=== PATIENT | male | born 1950 | race Caucasian/White ===

== ENCOUNTER 2018-04-11 18:19 | Inpatient (IN) | payer OTHER ==
[~2018-04-11] VITALS: Ht 177.8 cm; Wt 102.1 kg
--- NOTE | ~2018-04-11 | EKG ---
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 : 1950 Requested By: Carole Mon Order Number: [id number] MD: Byron Dawn Measurements Intervals [place] Rate: 93 P: 55 [place]: 128 QRS: 24 QRSD: 99 T: -9 QT: 355 QTc: 442 Interpretive Statements Sinus rhythm Nonspecific ST segment abnormality Baseline wander in lead(s) V5 No previous ECG available for comparison Electronically Signed On 04-12-2018 8:00:27 SCALE TANK OPERATOR by Byron Dawn [email or web address] <ELECTRONICALLY SIGNED> By: Byron Dawn MD, [facility] 04/12/18 0800 1849 48 Byron Dawn MD, FACC /EPI
--- NOTE | ~2018-04-11 | P ---
[facility] [place] [address] PROCEDURE REPORT Name: LAWRENCE LOVING Room #: 451-P ADM IN M.R.#: [id number] Admission: 04/11/18 Attend Phys: Kelly Ragland MD Discharge: Date of : 48 Report #: [id number] THIS REPORT FOR: //name// CC: Patient's Chart Kelly Ragland MD The patient of Dr. Ragland. PROCEDURE: Diagnostic esophagogastroduodenoscopy. INDICATION FOR PROCEDURE: This patient came in with a history of coffee-ground emesis. He had been on Xarelto, last dose was yesterday morning at 9 a.m. We are asked to evaluate him for the source of the coffee ground emesis. DESCRIPTION OF PROCEDURE: Informed consent for this procedure was obtained prior to the administration of any medication. The risks of the procedure, which include bleeding, perforation, infection, complications of sedation and the possibility I could miss something have been explained to the patient. He has indicated his consent by signing. Propofol was slowly titrated before and during this procedure for patient comfort by the anesthesia service. The Olympus upper videoscope was introduced through the upper esophageal sphincter and advanced under direct visualization to the descending duodenum. Findings are noted on withdrawal of the scope. The duodenal mucosa appears normal throughout its entirety. Pylorus, normal mucosa; antrum, normal mucosa. Body, normal mucosa. Cardia and fundus, normal mucosa. On retroflex view, the patient has a hiatal hernia and inside the hiatal hernia are some nonbleeding Joao's erosions which are the likely source of his coffee-ground emesis. The scope was withdrawn into the esophagus. The Z-line is appropriately located at the top of the gastric folds and appears normal. The esophageal mucosa appears normal throughout its entirety. The scope is withdrawn. The patient went to the recovery area in stable condition. He tolerated the procedure well. IMPRESSION: Hiatal hernia with Joao erosions that are probably the source of his coffee-ground emesis. Recommendations are for him to be on proton pump inhibitors for now. We will also ask that he have a repeat UA with micro as his urine is grossly bloody at this time and I think this might be from trauma from a Yadav catheter insertion. [address] [address] PROCEDURE REPORT Name: LAWRENCE LOVING Room #: 451-P ADM IN M.R.#: [id number] Admission: 04/11/18 Attend Phys: Kelly Ragland MD Discharge: Date of : 48 Report #: [id number] Thank you very much once again for allowing me to participate in his care, Dr. Ragland. <ELECTRONICALLY SIGNED> By: Camille Hardy DO 04/12/18 2052 1423 1708 Camille Hardy DO /nt
[2018-04-11 18:24] VITALS: BP 139/71
[2018-04-11] MEDS ORDERED: SPIRONOLACTONE25 M1 PO (18:44)
[2018-04-11] MEDS ORDERED: WELLBUTRIN 100100 MG PO (18:46)
[2018-04-11] MEDS ORDERED: LIPITOR 20 MG T20 M1 PO (18:46)
[2018-04-11] MEDS ORDERED: AMARYL4 MG PO (18:46)
[2018-04-11] MEDS ORDERED: DEPAKOTE 250MG250 M1 PO (18:47)
[2018-04-11] MEDS ORDERED: PEPCID20 MG PO (18:49)
[2018-04-11] MEDS ORDERED: LASIX 80 MG TAB80 MG PO (18:49)
[2018-04-11] MEDS ORDERED: NOVOLOG100 UNIT/1 SUBQ (18:50)
[2018-04-11] MEDS ORDERED: NAMENDA 10 MG T10 MG PO (18:50)
[2018-04-11] MEDS ORDERED: FLOMAX0.4 MG PO (18:51)
[2018-04-11 19:24] LABS: ABSOLUTE NEUTROPHILS 6.7 thou/uL (1.4-8.2); BASOPHILS 0.5 % (0.0-2.0); EOSINOPHILS 1.3 % (0.0-3.0); HEMATOCRIT 35.2 % (42.0-52.0); HEMOGLOBIN 12.2 gm/dL (14.0-18.0); LYMPHOCYTES 9.5 % (24.0-44.0); MCH 28.2 pg (26.0-34.0); MCHC 34.5 g/dL (28.0-37.0); MCV 81.6 fL (80.0-100.0); MONOCYTES 8.7 % (1.0-8.0); PLATELET COUNT 187 thou/uL (150-400); RBC 4.32 mil/uL (4.50-6.00); RDW 15.8 % (10.5-14.5); WBC 8.4 thou/uL (4.0-11.0)
[2018-04-11 19:27] LABS: ANION GAP 7 mmol/L (7-16); BUN 21 mg/dL (7-18); CALCIUM 8.7 mg/dL (8.5-10.1); CHLORIDE 98 mmol/L (98-107); CO2 31 mmol/L (21-32); CREATININE 1.6 mg/dL (0.7-1.3); GLUCOSE 174 mg/dL (74-106); POTASSIUM 4.2 mmol/L (3.5-5.1); SODIUM 136 mmol/L (136-145)
[2018-04-11 19:29] LABS: INR 1.1; PROTIME 11.9 Seconds (9.3-11.4)
[2018-04-11 19:29] LABS: URINE BILIRUBIN NEGATIVE (Negative); URINE BLOOD NEGATIVE (Negative); URINE CLARITY CLEAR; URINE COLOR YELLOW; URINE GLUCOSE-RANDOM* 2+ (Negative); URINE KETONES NEGATIVE (Negative); URINE LEUKOCYTES NEGATIVE (Negative); URINE NITRITE NEGATIVE (Negative); URINE PROTEIN (DIPSTICK) NEGATIVE (Negative)
[2018-04-11 19:36] LABS: ALBUMIN 3.2 g/dL (3.4-5.0); LIPASE 265 U/L (73-393); SGOT 20 U/L (15-37); SGPT 19 U/L (30-65); TOTAL BILIRUBIN 0.4 mg/dL (<0.1-1.0); TOTAL PROTEIN 6.8 g/dL (6.4-8.2); TROPONIN-I <0.06 ng/mL (<0.06)
[2018-04-11 23:01] VITALS: BP 136/72
[2018-04-12 04:08] VITALS: BP 127/77
[2018-04-12 08:02] VITALS: BP 124/65
[2018-04-12 10:10] LABS: HEMATOCRIT 31.7 % (42.0-52.0); HEMOGLOBIN 10.9 gm/dL (14.0-18.0)
[2018-04-12 15:21] VITALS: BP 126/65
[2018-04-12 19:20] VITALS: BP 134/84
[2018-04-13 04:35] VITALS: BP 110/53
[2018-04-13 04:50] LABS: HEMATOCRIT 32.1 % (42.0-52.0); HEMOGLOBIN 10.8 gm/dL (14.0-18.0); MCH 27.9 pg (26.0-34.0); MCHC 33.6 g/dL (28.0-37.0); MCV 82.9 fL (80.0-100.0); RBC 3.88 mil/uL (4.50-6.00); RDW 15.4 % (10.5-14.5)
[2018-04-13 05:03] LABS: CALCIUM 8.3 mg/dL (8.5-10.1); CREATININE 1.4 mg/dL (0.7-1.3); POTASSIUM 4.4 mmol/L (3.5-5.1)
[2018-04-13 07:37] VITALS: BP 118/64
[2018-04-13] MEDS ORDERED: LASIX 40 MG TAB40 M2 PO (14:09)
[2018-04-13] MEDS ORDERED: IRON325 PO (14:17)
[2018-04-13] MEDS ORDERED: PANTOPRAZOLE SO40 M1 PO (14:17)
[2018-04-13 14:20] VITALS: BP 102/64
== END 2018-04-13 18:25 | DRG 378 ==
LOC: ER 18:19 → 4W 23:31
PROVIDERS: Internal Medicine; Physician Assistant
PROC: 0DJ08ZZ Inspection of Upper Intestinal Tract, Via Natural or Artificial Opening Endoscopic (ICD-10-PCS; principal; 2018-04-12)
DX: K25.4 Chronic or unspecified gastric ulcer with hemorrhage (principal); D62 Acute posthemorrhagic anemia; K44.9 Diaphragmatic hernia without obstruction or gangrene; E11.9 Type 2 diabetes mellitus without complications; F03.90 Unspecified dementia, unspecified severity, without behavioral disturbance, psychotic disturbance, mood disturbance, and anxiety; F32.9 Major depressive disorder, single episode, unspecified; E78.5 Hyperlipidemia, unspecified; I48.91 Unspecified atrial fibrillation; K80.20 Calculus of gallbladder without cholecystitis without obstruction; K21.9 Gastro-esophageal reflux disease without esophagitis; N40.0 Benign prostatic hyperplasia without lower urinary tract symptoms; F39 Unspecified mood [affective] disorder; Z79.01 Long term (current) use of anticoagulants; Z79.899 Other long term (current) drug therapy
CPT/HCPCS: 10045; 62110; 62900; 70005

== ENCOUNTER 2020-03-04 10:47 | Inpatient (IN) | payer OTHER ==
[~2020-03-04] VITALS: Ht 177.8 cm; Wt 94.9 kg
[~2020-03-04 10:47] MED LIST: AMARYL4 MG PO; DEPAKOTE 250MG250 M1 PO; FLOMAX0.4 MG PO; IRON325 PO; LASIX 40 MG TAB40 M2 PO; LASIX 80 MG TAB80 MG PO; LIPITOR 20 MG T20 M1 PO; NAMENDA 10 MG T10 MG PO; NOVOLOG100 UNIT/1 SUBQ; PANTOPRAZOLE SO40 M1 PO; PEPCID20 MG PO; SPIRONOLACTONE25 M1 PO; WELLBUTRIN 100100 MG PO
[2020-03-04 10:48] VITALS: BP 105/74
[2020-03-04 11:16] LABS: ABSOLUTE NEUTROPHILS 4.1 thou/uL (1.4-8.2); BASOPHILS 0.7 % (0.0-2.0); EOSINOPHILS 4.6 % (0.0-3.0); HEMATOCRIT 43.1 % (42.0-52.0); HEMOGLOBIN 14.9 gm/dL (14.0-18.0); LYMPHOCYTES 19.7 % (24.0-44.0); MCH 31.3 pg (26.0-34.0); MCHC 34.6 g/dL (28.0-37.0); MCV 90.5 fL (80.0-100.0); MONOCYTES 6.9 % (1.0-8.0); PLATELET COUNT 164 thou/uL (150-400); POLYS 68.1 % (36.0-66.0); RBC 4.76 mil/uL (4.50-6.00); RDW 15.7 % (10.5-14.5)
[2020-03-04] MEDS ORDERED: NOVOLIN 70100 UNIT/1 SUBQ ×2 (12:25→12:26)
[2020-03-04] MEDS ORDERED: OMEPRAZOLE 20 M20 M1 PO (12:26)
[2020-03-04] MEDS ORDERED: ACETAMINOPHEN500 M1 PO (12:29)
[2020-03-04] MEDS ORDERED: VITCB500GO PO (12:30)
[2020-03-04] MEDS ORDERED: DEPAKOTE125 MG PO (12:32)
[2020-03-04] MEDS ORDERED: OPTIMAL D31250 MCG PO (12:33)
[2020-03-04 12:36] LABS: CALCIUM 8.6 mg/dL (8.5-10.1); CREATININE 1.4 mg/dL (0.7-1.3); POTASSIUM 3.9 mmol/L (3.5-5.1)
--- NOTE | 2020-03-04 12:55 | EKG ---
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: [facility] : 1950 Requested By: Issac Greene Order Number: [id number] MD: Byron Dawn Measurements Intervals [place] Rate: 149 P: 129 [place]: 136 QRS: 52 QRSD: 89 T: 240 QT: 348 QTc: 548 Interpretive Statements Atrial flutter Nonspecific ST and T wave abnormality Prolonged QT interval Compared to ECG 04/11/2018 18:50:00 Atrial flutter has replaced sinus rhythm Electronically Signed On 03-04-2020 12:55:05 CDT by Byron Dawn [email or web address] <ELECTRONICALLY SIGNED> By: Byron Dawn MD, FACC 03/04/20 1255 1052 1052 Byron Dawn MD, [facility] /EPI
[2020-03-04 13:29] LABS: URINE BILIRUBIN NEGATIVE (Negative); URINE BLOOD NEGATIVE (Negative); URINE CLARITY CLEAR; URINE COLOR YELLOW; URINE GLUCOSE-RANDOM* NEGATIVE (Negative); URINE KETONES NEGATIVE (Negative); URINE LEUKOCYTES-REFLEX NEGATIVE (Negative); URINE NITRITE-REFLEX NEGATIVE (Negative); URINE PROTEIN (DIPSTICK) NEGATIVE (Negative); URINE UROBILINOGEN 0.2 E.U./dl (0.2-1.0)
[2020-03-04 15:50] VITALS: BP 103/68
--- NOTE | 2020-03-04 17:51 | NUR ---
DR FUENTES NOTIFIED OF BS READINGS. CURRENTLY 70MG/DL. ORDER TO RECHECK IN AN HR.
[2020-03-04 18:06] LABS: FOLIC ACID 9.7 ng/mL (8.6-58.9); TSH 1.362 uIU/mL (0.358-3.740)
[2020-03-04 18:33] VITALS: BP 97/69
[2020-03-04 19:11] VITALS: BP 117/78
[2020-03-04 21:00] VITALS: BP 131/81
--- NOTE | 2020-03-04 22:00 | NUR ---
RECIEVED PT FROM ED , UPON ARRIVAL TO UNIT PT ALERT AND ORIENT TO SELF AND SITUATION, YARD PILOT PLACED ON,SHOWS AFIB AND NSR CONTROLLED RATE 78. DISCUSSED PLAN OF CARE VERBALIZED UNDERSTANDING BUT NEED REINFORCEMENT AND REMINDERS. BED ALARM ON WITH YELLOW BAND AND YELLOW SOCKS FOR SAFETY. WILL CONITNUE WITH CURRENT PLAN OF CARE AND WILL CALL WITH CHANGES OR ABNORMAL FINDINGS.
[2020-03-04 23:50] VITALS: BP 93/61
[2020-03-05 07:25] VITALS: BP 97/69
[2020-03-05 08:58] LABS: ABSOLUTE NEUTROPHILS 4.1 thou/uL (1.4-8.2); BASOPHILS 0.6 % (0.0-2.0); EOSINOPHILS 3.7 % (0.0-3.0); HEMOGLOBIN 12.6 gm/dL (14.0-18.0); LYMPHOCYTES 21.7 % (24.0-44.0); MCH 30.4 pg (26.0-34.0); MCV 91.9 fL (80.0-100.0); MONOCYTES 8.1 % (1.0-8.0); PLATELET COUNT 141 thou/uL (150-400); POLYS 65.9 % (36.0-66.0); RBC 4.14 mil/uL (4.50-6.00); WBC 6.3 thou/uL (4.0-11.0)
[2020-03-05 09:02] LABS: CALCIUM 8.1 mg/dL (8.5-10.1); CREATININE 1.6 mg/dL (0.7-1.3)
--- NOTE | 2020-03-05 09:34 | NUR ---
CM INITIATED ASSESSMENT, SPAdrian W/PT'S BROTHER, REGINE, PT DID NOT ANSWER PHONE IN HIS ROOM. PT HAS RESIDED AT [facility] FOR THE LAST "FOUR OR FIVE YEARS" PER REGINE. "They say he has a touch of dementia...but he holds a conversation with me when i go to see him. pt has no children involvment. regine stated he believes the pt has "given up...he doesnt want to get better...since he has been in there [[facility]]. jalen mazariegos w/pt's rn, alea, who stated pt okay to rtrn to facility. cm lft message intake coord at [facility] to discuss d/c planning. pt has tested negative for covid on 03/04/20.
[2020-03-05] MEDS ORDERED: METOPROLOL TART25 MG PO (10:34)
[2020-03-05 15:08] VITALS: BP 90/55
--- NOTE | 2020-03-05 16:24 | NUR ---
PT STABLE THROUGH OUT THE DAY. VSS. REMAINS IN SINUS RYHTM ON THE MONITOR. RATES CONTROLLED. ALERT TO SELF BUT FORGETFUL AND CONFUSED. HX OF DEMENTIA. DISCONTINUED ENHANCED PRECAUTIONS PER GEETHA SEVERINO. PATIENT VOICES NO NEED OR CONCERNS. IV FLUIDS INFUSING. PATIENT TO DISCHARGE BACK TO FACILITY.
[2020-03-05 19:17] VITALS: BP 115/66
[2020-03-06 04:15] VITALS: BP 95/64
--- NOTE | 2020-03-06 05:31 | NUR ---
PT MAKING POOR PROGRESS TOWARDS GOALS. PT INCONTINENT X2. PT DOES NOT REPORT THAT HE NEEDS ASSISTANCE WITH URINATING OR THAT HE HAS BEEN INCONTINENT. PT ORIENTED TO NAME, DATE, LOCATION BUT NOT HIS SITUATION. PT REFUSED TO HAVE HIS HS BLOOD SUGAR CHECKED. "I'M NOT DIABETIC" THOUGH THE H&P STATES DIABETES THIS IN HIS MEDICAL HISTORY. ALSO REFUSED HS DOSE OF LOVENOX. ATTEMPTED TO EDUCATE PT REGARDING LOVENOX AND BLOOD SUGARS BUT PT REFUSED TO ALLOW EITHER TO BE DONE.
[2020-03-06 08:05] VITALS: BP 108/67
[2020-03-06 13:20] LABS: HEMATOCRIT 34.9 % (42.0-52.0); HEMOGLOBIN 11.7 gm/dL (14.0-18.0); MCH 31.2 pg (26.0-34.0); MCHC 33.6 g/dL (28.0-37.0); MCV 92.8 fL (80.0-100.0); RBC 3.76 mil/uL (4.50-6.00)
--- NOTE | 2020-03-06 14:13 | NUR ---
DISCHARGE NOTE: SW reviewed chart and spoke with nursing and attending physician. Pt is medically stable for discharge back to [facility] today. Enhanced Isolation precautions have been discontinued. life care planner to coordinate and notify family. No additional SW needs identified at this time, but is available to assist should needs arise.
--- NOTE | 2020-03-06 14:37 | NUR ---
PT DISCHARGING TODAY BACK TO [facility] SKILLED FAXED DC ORDERS/SUMMARY TO FACILITY SPOKE WITH ASHLYN IN ADM SHE RECEIVED ORDERS AND ARRANGED TRANSPORT BY [facility] FOR [phone] TODAY. NOTIFIED PT'S BROTHER (VITALIY) OF DC AND TIME OF TRANSPORT. UNIT NOTIFIED AND CHART COPY PER US. RN TO CALL REPORT TO [phone].
[2020-03-06 15:18] VITALS: BP 121/68
== END 2020-03-06 17:24 | DRG 309 ==
LOC: ER 10:47 → EROBS 14:56 → 3W 14:56
PROVIDERS: Emergency Medicine; Nurse Practitioner; ADMIT Hospitalist; ATTEND Hospitalist
DX: I48.92 Unspecified atrial flutter (principal); N17.9 Acute kidney failure, unspecified; E11.9 Type 2 diabetes mellitus without complications; F32.9 Major depressive disorder, single episode, unspecified; F03.90 Unspecified dementia, unspecified severity, without behavioral disturbance, psychotic disturbance, mood disturbance, and anxiety; E78.5 Hyperlipidemia, unspecified; I48.91 Unspecified atrial fibrillation; Z20.828 Contact with and (suspected) exposure to other viral communicable diseases; R00.0 Tachycardia, unspecified; E78.00 Pure hypercholesterolemia, unspecified; Z79.899 Other long term (current) drug therapy; Z23 Encounter for immunization
CPT/HCPCS: 10879